=== PATIENT | male | born 1995 | race Caucasian/White ===

== ENCOUNTER 2016-03-13 13:10 | Emergency (ER) | payer OTHER, SELFPAY ==
[2016-03-13 14:23] LABS: MEAN CORPUSCULAR HEMOGLOBIN 29.6 pg (27.0-33.0); MEAN CORPUSCULAR HGB CONC 34.4 g/dl (32.0-36.5); MEAN CORPUSCULAR VOLUME 86.1 fl (80.0-96.0); RED CELL DISTRIBUTION WIDTH 12.5 % (11.5-14.5); WHITE BLOOD COUNT 10.3 K/mm3 (4.0-10.0)
[2016-03-13 14:39] LABS: AMPHETAMINES LEVEL URINE NEGATIVE (NEGATIVE); BENZODIAZEPINES URINE NEGATIVE (NEGATIVE); COCAINE METABOLITE URINE NEGATIVE (NEGATIVE); CONTROL LINE INT CTR LINE PRESENT; METHADONE URINE NEGATIVE (NEGATIVE); OPIATES URINE NEGATIVE (NEGATIVE); TRICYCLIC ANTIDEPRESS URINE NEGATIVE (NEGATIVE)
[2016-03-13 14:51] LABS: ALBUMIN 4.6 GM/DL (3.2-5.2); ALBUMIN/GLOBULIN RATIO 1.84 (1.00-1.93); ALKALINE PHOSPHATASE 75 U/L (45-117); ALT/SGPT 24 U/L (12-78); ANION GAP 7 MEQ/L (8-16); AST/SGOT 18 U/L (15-37); BILIRUBIN,DIRECT 0.1 MG/DL (0.0-0.2); BILIRUBIN,TOTAL 0.4 MG/DL (0.2-1.0); BLOOD UREA NITROGEN 12 MG/DL (7-18); CALCIUM LEVEL 9.1 MG/DL (8.5-10.1); CARBON DIOXIDE LEVEL 27 MEQ/L (21-32); CHLORIDE LEVEL 109 MEQ/L (98-107); CREATININE FOR GFR 0.87 MG/DL (0.70-1.30); GLUCOSE, FASTING 94 MG/DL (70-105); POTASSIUM SERUM 4.1 MEQ/L (3.5-5.1); SODIUM LEVEL 143 MEQ/L (136-145); TOTAL PROTEIN 7.1 GM/DL (6.4-8.2)
--- NOTE | 2016-03-13 16:59 | EDDOCDS ---
Nurse's Notes [facility] Name: José Stoddard Age: 20 yrs Sex: Male : 1995 Arrival Date: 03/13/2016 Time: 13:10 Bed [facility] Private MD: No Pcp Diagnosis: Major depressive disorder, single episode, unspecified Presentation: 03/13 13:15 Presenting complaint: Patient states: states that he has a Hx of anger outburst and had ml6 one this am breaking TV, states use to have [place] and wants to return to [place]. Mental Health Triage Level: Level 1- Pt displays no suicidal or homicidal ideations and does not appear to be a danger to self or others. Adult Sepsis Screening: The patient does not have new or worsening altered mentation. Patient's respiratory rate is less than 22. Systolic blood pressure is greater than 100. Patient has a qSOFA score of 0- Negative Sepsis Screen. Suicide/Homicide risk assessment- the patient denies having any suicidal and/or homicidal ideations and does not present with any other emotional, behavioral or mental health complaints. Status: Patient is not a new client banking services clerk or dependent. Transition of care: patient was not received from another setting of care. 13:15 Acuity: JOHNATHAN Level 4 ml6 13:15 Method Of Arrival: Walkin/Carried/Asstd ml6 13:15 Red Flag criteria, patient assessed and taken directly to a bed. ml6 Triage Assessment: 13:29 General: Appears in no apparent distress, Behavior is appropriate for age, cooperative. ml6 Pain: Denies pain. Pt Declines HIV testing. The patient is triaged at the bedside. See Assessment in Nurses Notes section of ED record. Neurological: No deficits noted. Historical: - Allergies: PENICILLINS (Swelling); - Home Meds: 1. none - PMHx: psychotic DO; - PSHx: Adenoidectomy; - Social history: Smoking status: Patient uses tobacco products, heavy tobacco smoker. No barriers to communication noted, Speaks appropriately for age. - Family history: Not pertinent. - : The pt / caregiver states he / she is not on anticoagulants. Home medication list is obtained from the patient. - Exposure Risk Screening:: None identified. Screenin:51 Screening information is obtained from the patient. Fall risk: No risks identified. me3 Assistance ADL's: requires no assistance with activities of daily living. Abuse/DV Screen: The patient / caregiver reports he/she is: not in a situation that causes fear, pain or injury. Nutritional screening: No deficits noted. Advance Directives: Currently, there is no health care proxy. home support is adequate. Assessment: 14:06 General: Appears in no apparent distress, comfortable, Behavior is appropriate for age, me3 cooperative. General: pt sitting on stretcher eating lunch. Respiratory: No deficits noted. Airway is patent Respiratory effort is even, unlabored. 15:12 General: Appears in no apparent distress, comfortable, Behavior is cooperative, me3 pleasant, family member in room with pt. Respiratory: No deficits noted. Airway is patent Respiratory effort is even, unlabored. 16:15 General: Appears in no apparent distress, comfortable, Behavior is cooperative, me3 pleasant. Respiratory: Airway is patent Respiratory effort is even, unlabored. Derm: Skin is pink, warm & dry. Mental Health Eval: 16:19 Mental health consult is initiated at 15:35. Status: The patient is not a ms new client banking services clerk or dependent. [facility] Behavioral Health: The patient is not an established patient of [facility] Behavioral Health. Referral Information: Evaluation referral is generated by the patient himself / herself. The patient was referred for evaluation because anger issues. Subjective: The patients chief complaint is Pt .reports he lives with his girlfriend at [facility]. he states this morning he had an anger outburst after being woken by his gf about 0930 hrs. Pt. reports he does not know why he awoke with such anger but ended up hitting wall and TV (broke TV) and was calling gf names and yelling .He reports calming down within about 15 minutes. He denies any harm to anyone else or himself. Pt .reports he does have a history of anger outburst,denies ever any assaultive behavior. He presents to ER with his gf mother as he asked her for ride to ER. Pt. states he would like referral for out-pt counseling services. . Delusions are denied. Patient's mood is appropriate. Hallucinations are denied. Girlfriends mother( [phone]) states pt. can return home to residence and is in support of pt .receiving counseling services. She denies any concern that pt. is a danger to self or others at this time. Mental Health history: depression, Mental Health Admissions: [facility] in 2012 Current Outpatient Mental Health Services: None. Current living environment is The patient currently lives with his / her significant other, . Patient presents to Emergency Department with the following symptoms within the past 2 weeks: anger. Substance abuse: Pt denies. Mental status exam: Patients appearance is appropriate, Patient's behavior is cooperative, Speech is normal. Affect is appropriate. Mood is appropriate. Hallucinations are denied. Appetite is normal. Memory is good. Energy level is normal. Content of thought is normal. Thought process is intact. Cognitive level is oriented to person, place, time and situation Patient's insight is good. Judgement is fair. Rapport with interviewer is good. Suicidal Ideation is denied. Homicidal ideation is denied. Disposition: Medically cleared for disposition by Ramiro Cannon MD Psychiatric Consult is performed by phone with Dr Jose Crisostomo MD. Narrative: Pt. given referral information. Vital Signs: 13:12 BP 158 / 87; Pulse 98; Resp 20; Temp 97.1(O); Pulse Ox 99% on R/A; Weight 77.11 kg (R); dem1 Height 6 ft. 0 in. (182.88 cm) (R); Pain 0/10; 16:58 BP 155 / 78; Pulse 78; Resp 16; Temp 98.6; Pulse Ox 99% on R/A; me3 13:12 Body Mass Index 23.06 (77.11 kg, 182.88 cm) [facility] Vitals: 13:12 Log In Time: March 13, 2016 at 13:10. dem1 13:14 RN notified that patient meets Red Flag criteria. [facility] ED Course: 13:11 Patient visited by Mell Noyola. dem1 13:11 Patient moved to Waiting dem1 13:12 No Pcp is Private Physician. dem1 13:13 Patient moved to [facility] ml6 13:26 Ramiro Cannon MD is Attending Physician. br1 13:27 Patient moved to [facility] ml6 13:28 Triage Initiated ml6 13:32 Patient visited by Thiago Banda Security Aide. pjf 13:33 Report received from rn - psych. triage level #1, no obs. req. at this time. pjf 13:45 Patient visited by Ramiro Cannon MD. br1 13:54 Ching Graham LPN is Primary Nurse. me3 13:58 Patient visited by Thiago Banda Security Aide. pjf 14:06 Acetaminophen Level Sent. me3 14:06 Basic Metabolic Profile Sent. me3 14:06 Complete Blood Count Sent. me3 14:06 Drug Eval Toxicology ED Only Sent. me3 14:06 Ethyl Alcohol (ethanol) Sent. me3 14:06 Liver Profile Sent. me3 14:06 Salicylate Level Sent. me3 14:06 Thyroid Stimulating Hormone Sent. me3 14:12 Patient visited by Thiago Banda Security Aide. pjf 14:39 Patient visited by Ching Graham LPN. me3 14:46 Patient visited by Thiago Banda Security Aide. pjf 15:00 Patient visited by Thiago Banda Security Aide. pjf 15:37 Patient visited by Thiago Banda Security Aide. pjf 15:58 Patient visited by Thiago Banda Security Aide. pjf 16:35 [facility] is Referral Physician. br1 16:51 No IV's were initiated during this patient's visit. No procedures done that require me3 assistance. 16:52 The patient / caregiver is instructed regarding the plan of care and ED course. me3 Order Results: Lab Order: Acetaminophen Level; SPEC'M 03/13/16 14:03 Test: ACETAMINOPHEN LEVEL; Value: < 2.0; Range: 10.0-30.0; Abnormal: Below low normal; Units: UG/ML; Status: F Lab Order: Basic Metabolic Profile; SPEC'M 03/13/16 14:03 Test: GLUCOSE, FASTING; Value: 94; Range: 70-105; Units: MG/DL; Status: F Test: BLOOD UREA NITROGEN; Value: 12; Range: 7-18; Units: MG/DL; Status: F Test: CREATININE FOR GFR; Value: 0.87; Range: 0.70-1.30; Units: MG/DL; Status: F Test: SODIUM LEVEL; Value: 143; Range: 136-145; Units: MEQ/L; Status: F Test: POTASSIUM SERUM; Value: 4.1; Range: 3.5-5.1; Units: MEQ/L; Status: F Test: CHLORIDE LEVEL; Value: 109; Range: 98-107; Abnormal: Above high normal; Units: MEQ/L; Status: F Test: CARBON DIOXIDE LEVEL; Value: 27; Range: 21-32; Units: MEQ/L; Status: F Test: ANION GAP; Value: 7; Range: 8-16; Abnormal: Below low normal; Units: MEQ/L; Status: F Test: CALCIUM LEVEL; Value: 9.1; Range: 8.5-10.1; Units: MG/DL; Status: F Lab Order: Complete Blood Count; SPEC'M 03/13/16 14:03 Test: WHITE BLOOD COUNT; Value: 10.3; Range: 4.0-10.0; Abnormal: Above high normal; Units: K/mm3; Status: F Test: RED BLOOD COUNT; Value: 4.98; Range: 4.30-6.10; Units: M/mm3; Status: F Test: HEMOGLOBIN; Value: 14.8; Range: 14.0-18.0; Units: g/dl; Status: F Test: HEMATOCRIT; Value: 42.9; Range: 42.0-52.0; Units: %; Status: F Test: MEAN CORPUSCULAR VOLUME; Value: 86.1; Range: 80.0-96.0; Units: fl; Status: F Test: MEAN CORPUSCULAR HEMOGLOBIN; Value: 29.6; Range: 27.0-33.0; Units: pg; Status: F Test: MEAN CORPUSCULAR HGB CONC; Value: 34.4; Range: 32.0-36.5; Units: g/dl; Status: F Test: RED CELL DISTRIBUTION WIDTH; Value: 12.5; Range: 11.5-14.5; Units: %; Status: F Test: PLATELET COUNT, AUTOMATED; Value: 230; Range: 150-450; Units: k/mm3; Status: F Lab Order: Drug Eval Toxicology ED Only; SPEC'M 03/13/16 14:03 Test: AMPHETAMINES LEVEL URINE; Value: NEGATIVE; Range: NEGATIVE; Status: F Test: BARBITURATES URINE; Value: NEGATIVE; Range: NEGATIVE; Status: F Test: BENZODIAZEPINES URINE; Value: NEGATIVE; Range: NEGATIVE; Status: F Test: CANNABINOIDS URINE; Value: POSITIVE; Range: NEGATIVE; Abnormal: Above high normal; Status: F Test: COCAINE METABOLITE URINE; Value: NEGATIVE; Range: NEGATIVE; Status: F Test: METHADONE URINE; Value: NEGATIVE; Range: NEGATIVE; Status: F Test: OPIATES URINE; Value: NEGATIVE; Range: NEGATIVE; Status: F Test: TRICYCLIC ANTIDEPRESS URINE; Value: NEGATIVE; Range: NEGATIVE; Status: F Test Note: ; FALSE POSITIVE RESULTS CAN BE CAUSED BY THE USE OF PANTOPRAZOLE (PROTONIX). Lab Order: Ethyl Alcohol (ethanol); SPEC' 03/13/16 14:03 Test: ETHYL ALCOHOL (ETHANOL); Value: < 0.003; Range: 0.000-0.010; Units: %; Status: F Lab Order: Liver Profile; [facility] 03/13/16 14:03 Test: AST/SGOT; Value: 18; Range: 15-37; Units: U/L; Status: F Test: ALT/SGPT; Value: 24; Range: 12-78; Units: U/L; Status: F Test: ALKALINE PHOSPHATASE; Value: 75; Range: 45-117; Units: U/L; Status: F Test: BILIRUBIN,TOTAL; Value: 0.4; Range: 0.2-1.0; Units: MG/DL; Status: F Test: BILIRUBIN,DIRECT; Value: 0.1; Range: 0.0-0.2; Units: MG/DL; Status: F Test: TOTAL PROTEIN; Value: 7.1; Range: 6.4-8.2; Units: GM/DL; Status: F Test: ALBUMIN; Value: 4.6; Range: 3.2-5.2; Units: GM/DL; Status: F Test: ALBUMIN/GLOBULIN RATIO; Value: 1.84; Range: 1.00-1.93; Status: F Lab Order: Salicylate Level; [facility] 03/13/16 14:03 Test: SALICYLATE LEVEL; Value: 2.8; Range: 5.0-30.0; Abnormal: Below low normal; Units: MG/DL; Status: F Lab Order: Thyroid Stimulating Hormone; [facility] 03/13/16 14:03 Test: THYROID STIMULATING HORMONE; Value: 0.704; Range: 0.463-3.98; Units: uIU/ML; Status: F Outcome: 16:36 Discharge ordered by Provider. br1 16:51 Discharge Assessment: patient administered narcotics -. The following High Risk me3 Discharge criteria are identified: None. Discharged to home ambulatory, with family. Condition: stable. Discharge instructions given to patient, Instructed on discharge instructions, follow up and referral plans. Demonstrated understanding of instructions, Pt was receptive of discharge instructions/ teaching. No special radiology studies were completed. Property :Personal belongings accompany Pt. 16:58 Patient left the ED. me3 Signatures: Stone, Alla, PSA PSA ms Veronika, Thiago, Security Aide Securpjf SantosChing gee,CARBON COATER MACHINE OPERATOR CARBON COATER MACHINE OPERATOR me3 Ramiro Cannon MD MD br1 Kristian Leonardo, RN RN ml6 Mell Noyola1 Corrections: (The following items were deleted from the chart) 13:40 13:33 Report received from rn - psych. triage level #2,+si, cooperative \T\ this time pjf pjf MTDD
--- NOTE | 2016-03-13 16:59 | EDDOCDS ---
Physician Documentation [facility] Name: José Stoddard Age: 20 yrs Sex: Male : 1995 Arrival Date: 03/13/2016 Time: 13:10 Bed [facility] Private MD: No Pcp Disposition: 03/13/16 16:36 Discharged to Home/Self Care. Impression: Major depressive disorder, single episode, unspecified. - Condition is Stable. - Discharge Instructions: Depression, Adult, Anger Management. - Medication Reconciliation, Local Pharmacy Hours form. - Follow up: [facility]; When: 2 - 3 days; Reason: Recheck today's complaints. - Problem is new. - Symptoms have improved. - Notes: You were seen in the ED for a mental health evaluation. Bloodwork showed no acute findings. Psychiatry was consulted and recommended that as you are having no thoughts of harming self or others and will be safe to go home that you may return home to follow up as an outpatient - use the referral provided to you by your psychosocial assesor and call today to arrange the appointment. Return to the ED for any worsening depression, thoughts of harming self or others or any other concerns. Historical: - Allergies: PENICILLINS (Swelling); - Home Meds: 1. none - PMHx: psychotic DO; - PSHx: Adenoidectomy; - Social history: Smoking status: Patient uses tobacco products, heavy tobacco smoker. No barriers to communication noted, Speaks appropriately for age. - Family history: Not pertinent. - : The pt / caregiver states he / she is not on anticoagulants. Home medication list is obtained from the patient. - Exposure Risk Screening:: None identified. Vital Signs: 03/13 13:12 BP 158 / 87; Pulse 98; Resp 20; Temp 97.1(O); Pulse Ox 99% on R/A; Weight 77.11 kg / dem1 170 lbs (R); Height 6 ft. 0 in. (182.88 cm) (R); Pain 0/10; 16:58 BP 155 / 78; Pulse 78; Resp 16; Temp 98.6; Pulse Ox 99% on R/A; me3 13:12 Body Mass Index 23.06 (77.11 kg, 182.88 cm) dem1 MDM: 13:45 Consult PFS/PSA/Outbound Sales Specialist ordered. br1 13:45 Consult PFS/PSA/Outbound Sales Specialist: Patient's case requires discussion with on-call br1 Psychiatrist ordered. 13:45 PSA/PFS to call Nursing Insurance Writer, to enter patient data on [place] Safe Act if patient br1 involuntarily admitted or transferred for SI or HI ordered. 13:45 Confirm accurate psychiatric medication list and times of last dosage ordered. br1 13:45 Detain Pt Until Medically/PFS Cleared ordered. br1 13:45 Acetaminophen Level Ordered. EDMS 13:45 Basic Metabolic Profile Ordered. EDMS 13:45 Complete Blood Count Ordered. EDMS 13:45 Drug Eval Toxicology ED Only Ordered. EDMS 13:45 Ethyl Alcohol (ethanol) Ordered. EDMS 13:45 Liver Profile Ordered. EDMS 13:45 Salicylate Level Ordered. EDMS 13:46 Thyroid Stimulating Hormone Ordered. EDMS 13:56 REGULAR DIET PLASTIC HERNANDEZ+DIET ordered. EDMS 15:11 Acetaminophen Level Reviewed. br1 15:11 Basic Metabolic Profile Reviewed. br1 15:11 Complete Blood Count Reviewed. br1 15:11 Drug Eval Toxicology ED Only Reviewed. br1 15:11 Salicylate Level Reviewed. br1 15:11 Ethyl Alcohol (ethanol) Reviewed. br1 15:11 Liver Profile Reviewed. br1 15:11 Thyroid Stimulating Hormone Reviewed. br1 15:12 Consult PFS/PSA/Socail Worker: Cleared medically for eval ordered. br1 15:35 Consult PFS/PSA/Socail Worker: Cleared medically for eval complete. ml4 15:48 Consult PFS/PSA/Outbound Sales Specialist complete. ms 15:48 Consult PFS/PSA/Outbound Sales Specialist: Patient's case requires discussion with on-call ms Psychiatrist complete. 15:48 PSA/PFS to call Nursing Insurance Writer, to enter patient data on [place] Safe [place] if patient ms involuntarily admitted or transferred for SI or HI complete. Signatures: Dispatcher [employer] EDMS Alla Mcdermott, PSA PSA ms SantosChing,TROUBLE OPERATOR TROUBLE OPERATOR me3 Becky Rodriges, PSA PSA ml4 Ramiro Cannon MD MD br1 Kristian Leonardo, LISETH RN ml6 MTDD
--- NOTE | 2016-03-15 18:00 | EDDOCDS ---
Nurse's Notes [facility] Name: José Stoddard Age: 20 yrs Sex: Male : 1995 Arrival Date: 03/13/2016 Time: 13:10 Bed [facility] Private MD: No Pcp Diagnosis: Major depressive disorder, single episode, unspecified Presentation: 03/13 13:15 Presenting complaint: Patient states: states that he has a Hx of anger outburst and had ml6 one this am breaking TV, states use to have [place] and wants to return to [place]. Mental Health Triage Level: Level 1- Pt displays no suicidal or homicidal ideations and does not appear to be a danger to self or others. Adult Sepsis Screening: The patient does not have new or worsening altered mentation. Patient's respiratory rate is less than 22. Systolic blood pressure is greater than 100. Patient has a qSOFA score of 0- Negative Sepsis Screen. Suicide/Homicide risk assessment- the patient denies having any suicidal and/or homicidal ideations and does not present with any other emotional, behavioral or mental health complaints. Status: Patient is not a financial report service sales agent or dependent. Transition of care: patient was not received from another setting of care. 13:15 Acuity: JOHNATHAN Level 4 ml6 13:15 Method Of Arrival: Walkin/Carried/Asstd ml6 13:15 Red Flag criteria, patient assessed and taken directly to a bed. ml6 Triage Assessment: 13:29 General: Appears in no apparent distress, Behavior is appropriate for age, cooperative. ml6 Pain: Denies pain. Pt Declines HIV testing. The patient is triaged at the bedside. See Assessment in Nurses Notes section of ED record. Neurological: No deficits noted. Historical: - Allergies: PENICILLINS (Swelling); - Home Meds: 1. none - PMHx: psychotic DO; - PSHx: Adenoidectomy; - Social history: Smoking status: Patient uses tobacco products, heavy tobacco smoker. No barriers to communication noted, Speaks appropriately for age. - Family history: Not pertinent. - : The pt / caregiver states he / she is not on anticoagulants. Home medication list is obtained from the patient. - Exposure Risk Screening:: None identified. Screenin:51 Screening information is obtained from the patient. Fall risk: No risks identified. me3 Assistance ADL's: requires no assistance with activities of daily living. Abuse/DV Screen: The patient / caregiver reports he/she is: not in a situation that causes fear, pain or injury. Nutritional screening: No deficits noted. Advance Directives: Currently, there is no health care proxy. home support is adequate. Assessment: 14:06 General: Appears in no apparent distress, comfortable, Behavior is appropriate for age, me3 cooperative. General: pt sitting on stretcher eating lunch. Respiratory: No deficits noted. Airway is patent Respiratory effort is even, unlabored. 15:12 General: Appears in no apparent distress, comfortable, Behavior is cooperative, me3 pleasant, family member in room with pt. Respiratory: No deficits noted. Airway is patent Respiratory effort is even, unlabored. 16:15 General: Appears in no apparent distress, comfortable, Behavior is cooperative, me3 pleasant. Respiratory: Airway is patent Respiratory effort is even, unlabored. Derm: Skin is pink, warm & dry. Mental Health Eval: 16:19 Mental health consult is initiated at 15:35. Status: The patient is not a ms financial report service sales agent or dependent. [facility] Behavioral Health: The patient is not an established patient of [facility]. Referral Information: Evaluation referral is generated by the patient himself / herself. The patient was referred for evaluation because anger issues. Subjective: The patients chief complaint is Pt .reports he lives with his girlfriend at [facility]. he states this morning he had an anger outburst after being woken by his gf about 0930 hrs. Pt. reports he does not know why he awoke with such anger but ended up hitting wall and TV (broke TV) and was calling gf names and yelling .He reports calming down within about 15 minutes. He denies any harm to anyone else or himself. Pt .reports he does have a history of anger outburst,denies ever any assaultive behavior. He presents to ER with his gf mother as he asked her for ride to ER. Pt. states he would like referral for out-pt counseling services. . Delusions are denied. Patient's mood is appropriate. Hallucinations are denied. Girlfriends mother( [phone]) states pt. can return home to residence and is in support of pt .receiving counseling services. She denies any concern that pt. is a danger to self or others at this time. Mental Health history: depression, Mental Health Admissions[place] [facility] [place] Current Outpatient Mental Health Services: None. Current living environment is The patient currently lives with his / her significant other, . Patient presents to Emergency Department with the following symptoms within the past 2 weeks: anger. Substance abuse: Pt denies. Mental status exam: Patients appearance is appropriate, Patient's behavior is cooperative, Speech is normal. Affect is appropriate. Mood is appropriate. Hallucinations are denied. Appetite is normal. Memory is good. Energy level is normal. Content of thought is normal. Thought process is intact. Cognitive level is oriented to person, place, time and situation Patient's insight is good. Judgement is fair. Rapport with interviewer is good. Suicidal Ideation is denied. Homicidal ideation is denied. Disposition: Medically cleared for disposition by Ramiro Cannon MD Psychiatric Consult is performed by phone with Dr Jose Crisostomo MD. Narrative: Pt. given referral information. Vital Signs: 13:12 BP 158 / 87; Pulse 98; Resp 20; Temp 97.1(O); Pulse Ox 99% on R/A; Weight 77.11 kg (R); dem1 Height 6 ft. 0 in. (182.88 cm) (R); Pain 0/10; 16:58 BP 155 / 78; Pulse 78; Resp 16; Temp 98.6; Pulse Ox 99% on R/A; me3 13:12 Body Mass Index 23.06 (77.11 kg, 182.88 cm) [facility] Vitals: 13:12 Log In Time: March 13, 2016 at 13:10. dem1 13:14 RN notified that patient meets Red Flag criteria. [facility] ED Course: 13:11 Patient visited by Mell Noyola. dem1 13:11 Patient moved to Waiting dem1 13:12 No Pcp is Private Physician. dem1 13:13 Patient moved to [facility] ml6 13:26 Ramiro Cannon MD is Attending Physician. br1 13:27 Patient moved to [facility] ml6 13:28 Triage Initiated ml6 13:32 Patient visited by Thiago Banda Security Aide. pjf 13:33 Report received from rn - psych. triage level #1, no obs. req. at this time. pjf 13:45 Patient visited by Ramiro Cannon MD. br1 13:54 Ching Graham LPN is Primary Nurse. me3 13:58 Patient visited by Thiago Banda Security Aide. pjf 14:06 Acetaminophen Level Sent. me3 14:06 Basic Metabolic Profile Sent. me3 14:06 Complete Blood Count Sent. me3 14:06 Drug Eval Toxicology ED Only Sent. me3 14:06 Ethyl Alcohol (ethanol) Sent. me3 14:06 Liver Profile Sent. me3 14:06 Salicylate Level Sent. me3 14:06 Thyroid Stimulating Hormone Sent. me3 14:12 Patient visited by Thiago Banda Security Aide. pjf 14:39 Patient visited by Ching Graham LPN. me3 14:46 Patient visited by Thiago Banda Security Aide. pjf 15:00 Patient visited by Thiago Banda Security Aide. pjf 15:37 Patient visited by Thiago Banda Security Aide. pjf 15:58 Patient visited by Thiago Banda Security Aide. pjf 16:35 [facility] is Referral Physician. br1 16:51 No IV's were initiated during this patient's visit. No procedures done that require me3 assistance. 16:52 The patient / caregiver is instructed regarding the plan of care and ED course. me3 17:46 PSA Outpatient Referrals was scanned into [employer] and attached to record. ml4 17:54 [facility] [place] Agreement was scanned into [employer] and attached to record. gjb 03/14 10:13 T-Sheet-- Draft Copy was scanned into [employer] and attached to record. gb Order Results: Lab Order: Acetaminophen Level; SPEC'M 03/13/16 14:03 Test: ACETAMINOPHEN LEVEL; Value: < 2.0; Range: 10.0-30.0; Abnormal: Below low normal; Units: UG/ML; Status: F Lab Order: Basic Metabolic Profile; SPEC'M 03/13/16 14:03 Test: GLUCOSE, FASTING; Value: 94; Range: 70-105; Units: MG/DL; Status: F Test: BLOOD UREA NITROGEN; Value: 12; Range: 7-18; Units: MG/DL; Status: F Test: CREATININE FOR GFR; Value: 0.87; Range: 0.70-1.30; Units: MG/DL; Status: F Test: SODIUM LEVEL; Value: 143; Range: 136-145; Units: MEQ/L; Status: F Test: POTASSIUM SERUM; Value: 4.1; Range: 3.5-5.1; Units: MEQ/L; Status: F Test: CHLORIDE LEVEL; Value: 109; Range: 98-107; Abnormal: Above high normal; Units: MEQ/L; Status: F Test: CARBON DIOXIDE LEVEL; Value: 27; Range: 21-32; Units: MEQ/L; Status: F Test: ANION GAP; Value: 7; Range: 8-16; Abnormal: Below low normal; Units: MEQ/L; Status: F Test: CALCIUM LEVEL; Value: 9.1; Range: 8.5-10.1; Units: MG/DL; Status: F Lab Order: Complete Blood Count; SPEC'M 03/13/16 14:03 Test: WHITE BLOOD COUNT; Value: 10.3; Range: 4.0-10.0; Abnormal: Above high normal; Units: K/mm3; Status: F Test: RED BLOOD COUNT; Value: 4.98; Range: 4.30-6.10; Units: M/mm3; Status: F Test: HEMOGLOBIN; Value: 14.8; Range: 14.0-18.0; Units: g/dl; Status: F Test: HEMATOCRIT; Value: 42.9; Range: 42.0-52.0; Units: %; Status: F Test: MEAN CORPUSCULAR VOLUME; Value: 86.1; Range: 80.0-96.0; Units: fl; Status: F Test: MEAN CORPUSCULAR HEMOGLOBIN; Value: 29.6; Range: 27.0-33.0; Units: pg; Status: F Test: MEAN CORPUSCULAR HGB CONC; Value: 34.4; Range: 32.0-36.5; Units: g/dl; Status: F Test: RED CELL DISTRIBUTION WIDTH; Value: 12.5; Range: 11.5-14.5; Units: %; Status: F Test: PLATELET COUNT, AUTOMATED; Value: 230; Range: 150-450; Units: k/mm3; Status: F Lab Order: Drug Eval Toxicology ED Only; SPEC'M 03/13/16 14:03 Test: AMPHETAMINES LEVEL URINE; Value: NEGATIVE; Range: NEGATIVE; Status: F Test: BARBITURATES URINE; Value: NEGATIVE; Range: NEGATIVE; Status: F Test: BENZODIAZEPINES URINE; Value: NEGATIVE; Range: NEGATIVE; Status: F Test: CANNABINOIDS URINE; Value: POSITIVE; Range: NEGATIVE; Abnormal: Above high normal; Status: F Test: COCAINE METABOLITE URINE; Value: NEGATIVE; Range: NEGATIVE; Status: F Test: METHADONE URINE; Value: NEGATIVE; Range: NEGATIVE; Status: F Test: OPIATES URINE; Value: NEGATIVE; Range: NEGATIVE; Status: F Test: TRICYCLIC ANTIDEPRESS URINE; Value: NEGATIVE; Range: NEGATIVE; Status: F Test Note: ; FALSE POSITIVE RESULTS CAN BE CAUSED BY THE USE OF PANTOPRAZOLE (PROTONIX). Lab Order: Ethyl Alcohol (ethanol); [facility] 03/13/16 14:03 Test: ETHYL ALCOHOL (ETHANOL); Value: < 0.003; Range: 0.000-0.010; Units: %; Status: F Lab Order: Liver Profile; [facility] 03/13/16 14:03 Test: AST/SGOT; Value: 18; Range: 15-37; Units: U/L; Status: F Test: ALT/SGPT; Value: 24; Range: 12-78; Units: U/L; Status: F Test: ALKALINE PHOSPHATASE; Value: 75; Range: 45-117; Units: U/L; Status: F Test: BILIRUBIN,TOTAL; Value: 0.4; Range: 0.2-1.0; Units: MG/DL; Status: F Test: BILIRUBIN,DIRECT; Value: 0.1; Range: 0.0-0.2; Units: MG/DL; Status: F Test: TOTAL PROTEIN; Value: 7.1; Range: 6.4-8.2; Units: GM/DL; Status: F Test: ALBUMIN; Value: 4.6; Range: 3.2-5.2; Units: GM/DL; Status: F Test: ALBUMIN/GLOBULIN RATIO; Value: 1.84; Range: 1.00-1.93; Status: F Lab Order: Salicylate Level; [facility] 03/13/16 14:03 Test: SALICYLATE LEVEL; Value: 2.8; Range: 5.0-30.0; Abnormal: Below low normal; Units: MG/DL; Status: F Lab Order: Thyroid Stimulating Hormone; SPEC'M 03/13/16 14:03 Test: THYROID STIMULATING HORMONE; Value: 0.704; Range: 0.463-3.98; Units: uIU/ML; Status: F Outcome: 03/13 16:36 Discharge ordered by Provider. br1 16:51 Discharge Assessment: patient administered narcotics -. The following High Risk me3 Discharge criteria are identified: None. Discharged to home ambulatory, with family. Condition: stable. Discharge instructions given to patient, Instructed on discharge instructions, follow up and referral plans. Demonstrated understanding of instructions, Pt was receptive of discharge instructions/ teaching. No special radiology studies were completed. Property :Personal belongings accompany Pt. 16:58 Patient left the ED. me3 Signatures: Alla Mcdermott, PSA PSA ms Davisdevantepolina, Nadia, Reg Reg gb Ferdarian, Thiago, Security Aide [facility] Ching Graham,MAILING SECTION CLERK MAILING SECTION CLERK me3 Becky Rodriges, PSA PSA ml4 Ramiro Cannon MD MD br1 Kristian Leonardo, RN RN ml6 Mell Noyola1 Mary Rubio Corrections: (The following items were deleted from the chart) 13:40 13:33 Report received from rn - psych. triage level #2,+si, cooperative \T\ this time pjf pjf Chart Complete MTDD
--- NOTE | 2016-03-15 18:00 | EDDOCDS ---
Physician Documentation [facility] Name: José Stoddard Age: 20 yrs Sex: Male : 1995 Arrival Date: 03/13/2016 Time: 13:10 Bed [facility] Private MD: No Pcp Disposition: 03/13/16 16:36 Discharged to Home/Self Care. Impression: Major depressive disorder, single episode, unspecified. - Condition is Stable. - Discharge Instructions: Depression, Adult, Anger Management. - Medication Reconciliation, Local Pharmacy Hours form. - Follow up: [facility]; When: 2 - 3 days; Reason: Recheck today's complaints. - Problem is new. - Symptoms have improved. - Notes: You were seen in the ED for a mental health evaluation. Bloodwork showed no acute findings. Psychiatry was consulted and recommended that as you are having no thoughts of harming self or others and will be safe to go home that you may return home to follow up as an outpatient - use the referral provided to you by your psychosocial assesor and call today to arrange the appointment. Return to the ED for any worsening depression, thoughts of harming self or others or any other concerns. Historical: - Allergies: PENICILLINS (Swelling); - Home Meds: 1. none - PMHx: psychotic DO; - PSHx: Adenoidectomy; - Social history: Smoking status: Patient uses tobacco products, heavy tobacco smoker. No barriers to communication noted, Speaks appropriately for age. - Family history: Not pertinent. - : The pt / caregiver states he / she is not on anticoagulants. Home medication list is obtained from the patient. - Exposure Risk Screening:: None identified. Vital Signs: 03/13 13:12 BP 158 / 87; Pulse 98; Resp 20; Temp 97.1(O); Pulse Ox 99% on R/A; Weight 77.11 kg / dem1 170 lbs (R); Height 6 ft. 0 in. (182.88 cm) (R); Pain 0/10; 16:58 BP 155 / 78; Pulse 78; Resp 16; Temp 98.6; Pulse Ox 99% on R/A; me3 13:12 Body Mass Index 23.06 (77.11 kg, 182.88 cm) dem1 MDM: 13:45 Consult PFS/PSA/Manager Of Compliance ordered. br1 13:45 Consult PFS/PSA/Manager Of Compliance: Patient's case requires discussion with on-call br1 Psychiatrist ordered. 13:45 PSA/PFS to call Nursing Fuel Operator, to enter patient data on [place] Safe [place] if patient br1 involuntarily admitted or transferred for SI or HI ordered. 13:45 Confirm accurate psychiatric medication list and times of last dosage ordered. br1 13:45 Detain Pt Until Medically/PFS Cleared ordered. br1 13:45 Acetaminophen Level Ordered. EDMS 13:45 Basic Metabolic Profile Ordered. EDMS 13:45 Complete Blood Count Ordered. EDMS 13:45 Drug Eval Toxicology ED Only Ordered. EDMS 13:45 Ethyl Alcohol (ethanol) Ordered. EDMS 13:45 Liver Profile Ordered. EDMS 13:45 Salicylate Level Ordered. EDMS 13:46 Thyroid Stimulating Hormone Ordered. EDMS 13:56 REGULAR DIET PLASTIC HERNANDEZ+DIET ordered. EDMS 15:11 Acetaminophen Level Reviewed. br1 15:11 Basic Metabolic Profile Reviewed. br1 15:11 Complete Blood Count Reviewed. br1 15:11 Drug Eval Toxicology ED Only Reviewed. br1 15:11 Salicylate Level Reviewed. br1 15:11 Ethyl Alcohol (ethanol) Reviewed. br1 15:11 Liver Profile Reviewed. br1 15:11 Thyroid Stimulating Hormone Reviewed. br1 15:12 Consult PFS/PSA/Socail Worker: Cleared medically for eval ordered. br1 15:35 Consult PFS/PSA/Socail Worker: Cleared medically for eval complete. ml4 15:48 Consult PFS/PSA/Manager Of Compliance complete. ms 15:48 Consult PFS/PSA/Manager Of Compliance: Patient's case requires discussion with on-call ms Psychiatrist complete. 15:48 PSA/PFS to call Nursing Fuel Operator, to enter patient data [place] if patient ms involuntarily admitted or transferred for SI or HI complete. 17:46 PSA Outpatient Referrals was scanned into [employer] and attached to record. ml4 17:54 [facility] Payment Agreement was scanned into [employer] and attached to record. b 17:54 Financial registration complete. gjb 03/14 10:13 T-Sheet-- Draft Copy was scanned into [employer] and attached to record. gb Signatures: Dispatcher [employer] EDMS Alla Mcdermott, PSA PSA ms Nadia Frey, Reg Reg gb Ching Graham,PITCH WORKER PITCH WORKER me3 Becky Rodriges, PSA PSA ml4 Ramiro Cannon MD MD br1 Kristian Leonardo, RN RN ml6 Mary Rubio The chart was reviewed and I authenticate all verbal orders and agree with the evaluation and treatment provided.Attachments: 17:54 [facility] Payment Agreement gjb 03/14 10:13 T-Sheet-- Draft Copy gb Chart Complete MTDD
--- NOTE | 2016-03-15 18:00 | EDDOCDS ---
Physician Documentation [facility] Name: José Stoddard Age: 20 yrs Sex: Male : 1995 Arrival Date: 03/13/2016 Time: 13:10 Bed [facility]1 Private MD: No Pcp Disposition: 03/13/16 16:36 Discharged to Home/Self Care. Impression: Major depressive disorder, single episode, unspecified. - Condition is Stable. - Discharge Instructions: Depression, Adult, Anger Management. - Medication Reconciliation, Local Pharmacy Hours form. - Follow up: [facility]; When: 2 - 3 days; Reason: Recheck today's complaints. - Problem is new. - Symptoms have improved. - Notes: You were seen in the ED for a mental health evaluation. Bloodwork showed no acute findings. Psychiatry was consulted and recommended that as you are having no thoughts of harming self or others and will be safe to go home that you may return home to follow up as an outpatient - use the referral provided to you by your psychosocial assesor and call today to arrange the appointment. Return to the ED for any worsening depression, thoughts of harming self or others or any other concerns. Historical: - Allergies: PENICILLINS (Swelling); - Home Meds: 1. none - PMHx: psychotic DO; - PSHx: Adenoidectomy; - Social history: Smoking status: Patient uses tobacco products, heavy tobacco smoker. No barriers to communication noted, Speaks appropriately for age. - Family history: Not pertinent. - : The pt / caregiver states he / she is not on anticoagulants. Home medication list is obtained from the patient. - Exposure Risk Screening:: None identified. Vital Signs: 03/13 13:12 BP 158 / 87; Pulse 98; Resp 20; Temp 97.1(O); Pulse Ox 99% on R/A; Weight 77.11 kg / dem1 170 lbs (R); Height 6 ft. 0 in. (182.88 cm) (R); Pain 0/10; 16:58 BP 155 / 78; Pulse 78; Resp 16; Temp 98.6; Pulse Ox 99% on R/A; me3 13:12 Body Mass Index 23.06 (77.11 kg, 182.88 cm) dem1 MDM: 13:45 Consult PFS/PSA/Fertilizer Loader ordered. br1 13:45 Consult PFS/PSA/Fertilizer Loader: Patient's case requires discussion with on-call br1 Psychiatrist ordered. 13:45 PSA/PFS to call Nursing Optical Glass Wet Inspector, to enter patient data [place] if patient br1 involuntarily admitted or transferred for SI or HI ordered. 13:45 Confirm accurate psychiatric medication list and times of last dosage ordered. br1 13:45 Detain Pt Until Medically/PFS Cleared ordered. br1 13:45 Acetaminophen Level Ordered. EDMS 13:45 Basic Metabolic Profile Ordered. EDMS 13:45 Complete Blood Count Ordered. EDMS 13:45 Drug Eval Toxicology ED Only Ordered. EDMS 13:45 Ethyl Alcohol (ethanol) Ordered. EDMS 13:45 Liver Profile Ordered. EDMS 13:45 Salicylate Level Ordered. EDMS 13:46 Thyroid Stimulating Hormone Ordered. EDMS 13:56 REGULAR DIET PLASTIC HERNANDEZ+DIET ordered. EDMS 15:11 Acetaminophen Level Reviewed. br1 15:11 Basic Metabolic Profile Reviewed. br1 15:11 Complete Blood Count Reviewed. br1 15:11 Drug Eval Toxicology ED Only Reviewed. br1 15:11 Salicylate Level Reviewed. br1 15:11 Ethyl Alcohol (ethanol) Reviewed. br1 15:11 Liver Profile Reviewed. br1 15:11 Thyroid Stimulating Hormone Reviewed. br1 15:12 Consult PFS/PSA/Socail Worker: Cleared medically for eval ordered. br1 15:35 Consult PFS/PSA/Socail Worker: Cleared medically for eval complete. ml4 15:48 Consult PFS/PSA/Fertilizer Loader complete. ms 15:48 Consult PFS/PSA/Fertilizer Loader: Patient's case requires discussion with on-call ms Psychiatrist complete. 15:48 PSA/PFS to call Nursing Optical Glass Wet Inspector, to enter [place] data [place] if patient ms involuntarily admitted or transferred for SI or HI complete. 17:46 PSA Outpatient Referrals was scanned into [employer] and attached to record. ml4 17:54 [facility] [place] Agreement was scanned into [employer] and attached to record. b 17:54 Financial registration complete. gjb 03/14 10:13 T-Sheet-- Draft Copy was scanned into [employer] and attached to record. gb Signatures: Dispatcher [employer] EDMS Alla Mcdermott, PSA PSA ms Nadia Frey, Reg Reg gb Ching Graham,JIG AND FIXTURE REPAIRER JIG AND FIXTURE REPAIRER me3 Becky Rodriges, PSA PSA ml4 Ramiro Cannon MD MD br1 Kristian Leonardo, RN RN ml6 Mary Rubio The chart was reviewed and I authenticate all verbal orders and agree with the evaluation and treatment provided.Attachments: 17:54 [facility] Payment Agreement gjb 03/14 10:13 T-Sheet-- Draft Copy gb Chart Complete MTDD
== END 2016-03-13 16:58 | disposition home or self-care (01) ==
LOC: M ED 13:10
DX: F32.9 Major depressive disorder, single episode, unspecified (principal); F29 Unspecified psychosis not due to a substance or known physiological condition; Z72.0 Tobacco use; Z88.0 Allergy status to penicillin
CPT/HCPCS: 80048; 80076; 80306; 84443; 85027; 99283; G0480

== ENCOUNTER → 2017-01-03 | Outpatient (CLI) | payer OTHER ==
--- NOTE | 2017-01-03 11:49 | REP ---
Clinical: Trauma. Technique: AP, lateral, bilateral oblique views right second digit . Findings: The osseous structures and joint spaces are intact and normal. There is no evidence for acute fracture or dislocation. Surrounding soft tissues are unremarkable. No subcutaneous emphysema or radiodense foreign body. Impression: Normal examination . No acute fracture or dislocation. Signed by Andres Bonds MD 01/03/2017 11:41 A
== END ==
LOC: M ADAMS 11:06
PROVIDERS: ATTEND Physician Assistant
DX: M79.641 Pain in right hand (principal)

== ENCOUNTER 2018-01-03 10:55 | Emergency (ER) | payer OTHER ==
[2018-01-03] MEDS: FLUORESCEIN OPHTH 1 MG STRIP OS (11:45)
[2018-01-03] MEDS: TETRACAINE 0.5% OPHTH SOLN 4ML OS (11:45)
[2018-01-03] MEDS: ERYTHROMYCIN OPHTH OINT OS (12:27)
== END 2018-01-03 12:28 | disposition home or self-care (01) ==
LOC: M ED 10:55
DX: S05.02XA Injury of conjunctiva and corneal abrasion without foreign body, left eye, initial encounter (principal); W22.8XXA Striking against or struck by other objects, initial encounter; Y92.89 Other specified places as the place of occurrence of the external cause; Z88.0 Allergy status to penicillin; F17.210 Nicotine dependence, cigarettes, uncomplicated
CPT/HCPCS: 99283